=== PATIENT | male | born 1980 | race Caucasian/White ===

== ENCOUNTER → 2017-07-04 09:22 | Outpatient (CLI) | payer OTHER, SELFPAY ==
[2017-07-04 10:16] LABS: Add Manual Diff / Slide Review NO; Eosinophils Percent Auto 1.7 % (2-4); Hematocrit 45.1 % (41-53); Lymphocytes Percent Auto 32.1 % (25-40); Mean Corpuscular HGB Conc 35.4 % (30-36); Mean Corpuscular Hemoglobin 31.7 PG (26-34); Mean Corpuscular Volume 89.6 fL (80-100); Monocytes Percent Auto 7.4 % (3-14); Neutrophils Absolute Auto 3800 /uL (3000-5900); Neutrophils Percent Auto 57.8 % (50-75); Platelet Count 251 X10^3/uL (150-400); Red Blood Cell Count 5.03 X10^6/uL (4.5-5.9); Red Cell Distribution Width 12.8 % (11.6-14.8); White Blood Cell Count 6.7 X10^3/uL (4.5-11.0)
[2017-07-04 10:34] LABS: Alanine Aminotransferase 23 IU/L (21-72); Albumin 4.4 g/dL (3.5-5.0); Albumin Globulin Ratio 1.3 (1.0-2.8); Alkaline Phosphatase 89 U/L (38-126); Aspartate Aminotransferase 14 IU/L (17-59); Bilirubin Total 1.8 mg/dL (0.2-1.3); Calcium 9.4 mg/dL (8.4-10.2); Cholesterol 207 mg/dL (140-199); Estimated Glomerular Filt Rate > 60.0 mL/min (>60); Globulin 3.4 g/dL (1.7-4.1); Glucose 280 mg/dL (70-100); HDL Cholesterol 30 mg/dL (40-60); HEMOLYSIS < 15 (0-50); LDL Cholesterol Calculated 131 mg/dL (<100); Potassium 4.4 mmol/L (3.4-5.1); Sodium 141 mmol/L (137-145); Total Protein 7.8 g/dL (6.3-8.2); Triglycerides 230 mg/dL (35-150)
[2017-07-04 10:36] LABS: Hemoglobin A1C% w Est Avg Glu 13.1 % (4.0-6.0)
[2017-07-04 11:04] LABS: Thyroid Stimulating Hormone 2.88 uIU/mL (0.47-4.68)
== END ==
PROVIDERS: PCP Internal Medicine; Visit Provider Internal Medicine
DX: E11.9 Type 2 diabetes mellitus without complications (principal); E66.01 Morbid (severe) obesity due to excess calories; I10 Essential (primary) hypertension
CPT/HCPCS: 36415; 80053; 80061; 83036; 84443; 85025

== ENCOUNTER → 2017-07-23 11:23 | Outpatient (CLI) | payer OTHER, SELFPAY ==
[2017-07-23 12:06] LABS: Add Manual Diff / Slide Review NO; Basophils Percent Auto 0.7 % (0-2); Eosinophils Percent Auto 1.3 % (2-4); Hematocrit 42.8 % (41-53); Lymphocytes Percent Auto 34.8 % (25-40); Mean Corpuscular Hemoglobin 31.5 PG (26-34); Mean Corpuscular Volume 89.9 fL (80-100); Monocytes Percent Auto 5.6 % (3-14); Neutrophils Absolute Auto 4500 /uL (3000-5900); Neutrophils Percent Auto 57.6 % (50-75); Platelet Count 255 X10^3/uL (150-400); Red Blood Cell Count 4.75 X10^6/uL (4.5-5.9); Red Cell Distribution Width 12.8 % (11.6-14.8); White Blood Cell Count 7.8 X10^3/uL (4.5-11.0)
[2017-07-23 12:14] LABS: Hemoglobin A1C% w Est Avg Glu 10.8 % (4.0-6.0)
[2017-07-23 12:26] LABS: BUN Creatinine Ratio 22.9 (6-22); Blood Urea Nitrogen 16 mg/dL (9-20); Calcium 9.5 mg/dL (8.4-10.2); Carbon Dioxide 26 mmol/L (22-32); Chloride 104 mmol/L (98-107); Estimated Glomerular Filt Rate > 60.0 mL/min (>60); Glucose 100 mg/dL (70-100); HEMOLYSIS 17 (0-50); Potassium 4.3 mmol/L (3.4-5.1); Sodium 143 mmol/L (137-145)
== END ==
PROVIDERS: Family Provider Family Medicine; PCP Internal Medicine; Visit Provider Physician Assistant Surgical
DX: M65.4 Radial styloid tenosynovitis [de Quervain] (principal); Z01.812 Encounter for preprocedural laboratory examination; Z01.818 Encounter for other preprocedural examination
CPT/HCPCS: 36415; 80048; 83036; 85025

== ENCOUNTER 2017-07-31 06:27 | Day surgery (SDC) | payer OTHER, SELFPAY ==
[2017-07-23 12:28] VITALS: BMI 42.7
[2017-07-31 07:11] VITALS: BMI 42.7
[2017-07-31 07:24] VITALS: BP 126/84; RESP 104; TEMP 36.4; O2SAT 99
[2017-07-31] MEDS: LACTATED RINGERS 1,000 ML 42 ML IV (07:43)
[2017-07-31] MEDS: CEFAZOLIN 2 GM/100 ML FROZ.PIGGY IV (07:46)
[2017-07-31] MEDS: BUPIVACAINE 0.5% W/ EPI (PF) 30 ML VIAL INJ (08:23)
--- NOTE | 2017-07-31 08:24 | P.OP_ITS ---
Operative Date/Time/Diagnoses - Date of procedure: 07/31/17 Time of procedure: 08:20 Pre-op diagnosis: Right de Quervain Post-op diagnosis: same Procedure & Clinicians Procedure: First extensor compartment release Same procedure as scheduled: Yes Indications: Right de Quervain Surgeon: Bacilio Davies Assistant Women'S Soccer Coach: Natalya Richter Click Yes if Unassisted: Yes Anesthesia Type: MAC +/- Operative Notes Findings: Irritation to the 1st extensor compartment Closure Type: primary Applied: cast(s) Estimated Blood Loss (mL): 5 Blood products transfused: none Tourniquet time (min): 12 Procedure in detail: Service patient was met in the holding area. Operative site was signed and witnessed by the OR staff. The surgery once again discussed with patient and any remaining questions they had were answered fully. Patient was taken back to the operating theater and placed on the operating table in the supine position. Great care taken to ensure that all bony prominences were properly padded. A well-padded tourniquet was placed up along the upper extremity. A timeout was performed to verify patient's name, procedure, and operative site. The upper extremity was then prepped and draped in the normal sterile fashion. An Esmarch was used to exsanguinate the limb and the tourniquet was turned up to 250 mm mercury. A 15 blade was used to incise the skin only starting at the tip of the radial styloid and proceeding proximally about 2 cm. Pickups and tenotomy scissors were used to dissect down through the fascial tissue. Great care taken to ensure that the branches of the superficial radial nerve identified and protected. This gave us good visualization of the extensor sheath. The extensor sheath was released on the radial aspect. Inspection of the APL and EPB tendons was performed. Any tenosynovitis was removed. As well as any accessory slips. The wound was copiously irrigated. The wound was then closed and the hand was then cleaned, dried, and dressed. Patient was placed into a thumb spica splint and was taken to PACU in stable condition. Complications: none Condition: stable Disposition: PACU Plan for aftercare: Splint for 2 weeks followed by a removable thumb spica brace
[2017-07-31 08:45] VITALS: BP 110/73; PULSE 100; RESP 15; TEMP 37.1; O2SAT 97
--- NOTE | 2017-07-31 08:51 | SUR.PHASEII ---
D/C INSTRUCTIONS REVIEWED WITH VERBALIZED UNDERSTANDING, DR TRUONG IN TO SPEAK WITH PT AND HIS SIGNIFICANT OTHER, PT TOLERATING PO FLUIDS, DENIES ANY PAIN OR DISCOMFORT, DRESSING REMAINS DRY AND INTACT, FINGERS AND THUMB PINK AND WARM WITH BRISK CAPILLARY REFILL.
== END 2017-07-31 08:54 | disposition home or self-care (01) ==
PROVIDERS: Family Provider Family Medicine; PCP Internal Medicine; Visit Provider Orthopaedic Surgery
PROC: (CPT 25000; principal; 2017-07-31 07:45)
DX: M65.4 Radial styloid tenosynovitis [de Quervain] (principal); E11.9 Type 2 diabetes mellitus without complications; Z79.4 Long term (current) use of insulin
CPT/HCPCS: 25000; J0690; J2250; J2704; J3010

== ENCOUNTER → 2017-09-04 11:36 | Outpatient (CLI) | payer OTHER, SELFPAY ==
--- NOTE | 2017-09-04 11:39 | DI.ECHO.S_ITS ---
[facility] +---------+ : : [address] : : : : [place] : : : : [id number] : : : : Phone: [phone]+ Echocardiogram Report + + :Name: DANIELA MORRIS Study Date: 09/04/2017 Height: 71 in : :[facility] Exam Location: [facility] Weight: 281 lb : : Gender: Male BSA: 2.4 m2 : :: 1980 Age: 36 yrs BP: 106/70 mmHg: :Reason For Study: AB EKG : : Performed By: Padmini Roper : :Referring: BINH GROSSMAN : + + Interpretation Summary The left ventricle is normal in size. The ejection fraction is estimated to be 50-55%. The right ventricle is mildly dilated. The right ventricular systolic function is normal. No significant valvular pathology seen. An ill defined echogenecity seen in the lumen of the aortic arch. This could be an artifact but can not r/o other pathologies like pedunculated atherosclerotic plaque which is unlikely as patient is 36 years old, unless very strong history of premature atherosclerotic vascular disease. Correlate clinically and if needed consider MISHA. Procedure: A two-dimensional transthoracic echocardiogram with color flow and Doppler was performed. The study quality was technically difficult. Comparison is made with the echocardiogram of 03/10/2008. A contrast injection of Definity was performed to improve assessment of LV function. The heart rate ranged between 73-83 bpm during the study. The patient was in normal sinus rhythm during the exam. Left Ventricle: The left ventricle is normal in size. There is normal left ventricular wall thickness. There is no thrombus. The ejection fraction is estimated to be 50-55%. Septal motion is consistent with conduction abnormality. Assessment of diastolic parameters indicates normal left ventricular diastolic function and normal filling pressures. Right Ventricle: The right ventricle is mildly dilated. The right ventricular systolic function is normal. Atria: Both atria are normal in size. There is no Doppler evidence for an interatrial shunt. Mitral Valve: The mitral valve leaflets appear normal. There is no evidence of stenosis, fluttering, or prolapse. There is trace mitral regurgitation. Aortic Valve: The aortic valve is grossly normal. There is no aortic valve stenosis. No aortic regurgitation is present. Tricuspid Valve: The tricuspid valve is normal in structure and function. There is trace tricuspid regurgitation. The right ventricular systolic pressure is estimated at 19 mmHg assuming a right atrial pressure of 3 mm Hg. Pulmonic Valve: The pulmonic valve is not well visualized. Great Vessels: The aortic root is normal size. The aortic arch is normal in size. The ascending aorta could not be visualized. An ill defined echogenecity seen in the lumen of the aortic arch. This could be an artifact but can not r/o other pathologies like pedunculated atherosclerotic plaque which is unlikely as patient is 36 years old, unless very strong history of premature atherosclerotic vascular disease. Correlate clinically and if needed consider MISHA. The pulmonary is not well visualized. The IVC is of normal diameter and collapses greater than 50% with a sniff. This suggests a low right atrial pressure of 3 mm Hg. Pericardium/ Pleura There is no pericardial effusion. There is no pleural effusion. MMode/2D Measurements & Calculations LVIDd: 4.8 cm LVOT diam: 2.7 cm LVIDs: 3.0 cm Ao root diam: 3.5 cm FS: 36.5 % Ao Arch Diam (distal): 2.8 cm EPSS: 0.40 cm IVSd: 0.67 cm LVPWd: 0.79 cm LV fernandez. diameter/BSA (cm/m^2): 2.0 LV sys. diameter/BSA (cm/m^2): 1.2 LA A2 area: 20.1 cm2 RA long axis: 5.6 cm LA A4 area: 21.6 cm2 RA area: 21.5 cm2 LA length (vol): 6.0 cm RA vol: 69.9 ml LA vol: 61.4 ml RA : 28.7 ml/m2 LA vol index: 25.2 ml/m2 IVC diam: 1.7 cm RVD1 (basal): 3.9 cm TAPSE: 2.0 cm Doppler Measurements & Calculations Ao V2 max: 99.2 cm/sec LVOT Max Kevin: 75.2 cm/sec Ao V2 mean: 76.8 cm/sec LV V1 max P.3 mmHg Ao max P.9 mmHg LV V1 VTI: 14.2 cm Ao mean P.5 mmHg EPIFANIO(I,D): 4.8 cm2 Ao V2 VTI: 16.6 cm EPIFANIO(V,D): 4.2 cm2 sev ratio: 0.86 EPIFANIO indexed to BSA (cm^2/m^2): 2.0 MV E max kevin: 67.9 cm/sec TR max kevin: 197.5 cm/sec MV A max kevin: 50.4 cm/sec TR max P.6 mmHg MV E/A: 1.3 Med Peak E' Kevin: 9.5 cm/sec E/E' med: 7.2 Lat Peak E' Kevin: 13.2 cm/sec E/E' lat: 5.1 E/e' average: 6.2 MV dec time: 0.27 sec Reading Physician:KATIE
== END ==
PROVIDERS: PCP Internal Medicine; Visit Provider Internal Medicine
DX: R00.0 Tachycardia, unspecified (principal); R94.31 Abnormal electrocardiogram [ECG] [EKG]
CPT/HCPCS: C8929; Q9957